=== PATIENT | female | born 2000 | race Two or more races ===

== ENCOUNTER 2024-07-05 11:08 | Outpatient (CLI) | payer OTHER | END 2024-07-05 11:10 | disposition home or self-care (01) | LOC: MAMO-SONO 11:08 | PROVIDERS: ATTEND Obstetrics & Gynecology | DX: N64.4 Mastodynia (principal); Z12.39 Encounter for other screening for malignant neoplasm of breast ==

== ENCOUNTER 2024-08-03 10:48 | Outpatient (CLI) | payer OTHER ==
[2024-08-03 11:54] LABS: HEMATOCRIT 38.9 % (36.0-45.00); HEMOGLOBIN 13.6 g/dL (12.0-15.00); MEAN CELL VOLUME 91.3 fL (80.00-100.00); PLATELET COUNT 285 K/uL (150-450); RED BLOOD COUNT 4.27 M/uL (4.00-6.00); RED CELL DISTRIBUTION WIDTH 11.7 % (11.5-14.5)
[2024-08-03 12:29] LABS: PH,URINE 5.5 (5.0-8.0); URINE APPEARANCE Clear; URINE BILIRRUBIN Negative (NEGATIVE); URINE BLOOD Negative; URINE COLOR Yellow; URINE GLUCOSE Negative (NEGATIVE); URINE KETONE Negative (NEGATIVE); URINE LEUKOCYTE Trace; URINE NITRATE Negative; URINE PROTEIN Negative (NEGATIVE); URINE UROBILINOGEN 0.2 E.U./dl
[2024-08-03 12:33] LABS: URINE BACTERIA 330.4 uL (0.0-1933); URINE EPITHELIAL CELLS 3.4 uL (0.0-38.8); URINE WBC 28.3 uL (0.0-23.2)
[2024-08-03 13:04] LABS: ALBUMIN 4.4 gm/dL (3.4-5.0); BILIRUBIN TOTAL 0.64 mg/dL (0.3-1.2); CALCIUM 9.3 mg/dL (8.5-10.1); CHOL HDL RATIO 2.1 (0-5.0); CREATININE SERUM 0.58 mg/dL (0.55-1.02); GFR 126.67; GLOBULINA 2.9 G/DL (2.4-3.5); POTASSIUM 3.71 mEq/L (3.5-5.1); TOTAL PROTEIN 7.3 gm/dL (6.4-8.2); TSH 1.25 uIU/mL (0.358-3.74)
[2024-08-03 15:39] LABS: RAPID PLASMA REAGIN NONREACTIVE BY RPR (NONREACTIVE)
[2024-08-05 07:11] LABS: hav igm Negative (Negative); hcv Non Reactive (Non Reactive); hep b c Negative (Negative); hep b s ag Negative (Negative)
[2024-08-05 12:12] LABS: CA 125 22.9 U/mL (0.0-38.1); CA 19-9 23 U/mL (0-35)
[2024-08-05 23:10] LABS: chla t Negative (Negative); neiss Negative (Negative)
== END 2024-08-03 10:55 | disposition home or self-care (01) ==
LOC: LAB 10:48
PROVIDERS: ATTEND Obstetrics & Gynecology
DX: E78.5 Hyperlipidemia, unspecified (principal); E03.9 Hypothyroidism, unspecified; E11.8 Type 2 diabetes mellitus with unspecified complications; N93.0 Postcoital and contact bleeding; E55.9 Vitamin D deficiency, unspecified; Z11.3 Encounter for screening for infections with a predominantly sexual mode of transmission; A56.09 Other chlamydial infection of lower genitourinary tract; A54.03 Gonococcal cervicitis, unspecified; K75.9 Inflammatory liver disease, unspecified; A53.9 Syphilis, unspecified; B20 Human immunodeficiency virus [HIV] disease; A64 Unspecified sexually transmitted disease; R10.2 Pelvic and perineal pain; N83.201 Unspecified ovarian cyst, right side